=== PATIENT | female | born 1990 | race Caucasian/White ===

== ENCOUNTER 2018-07-13 00:27 | Emergency (ER) | payer MEDICARE ==
[~2018-07-13] VITALS: Ht 160 cm; Wt 45.5 kg
[~2018-07-13 00:27] MED LIST: AMBIEN5 MG PO; APRESOLINE25 MG PO; BENADRYL25 M1 PO; CARAFATE1 G PO; CATAPRES0.1 MG PO; CELEXA40 MG PO; CLARITIN 10 MG10 MG PO; COREG6.25 MG PO; EPOGEN10000 U/ML SQ; EZFE 200200 MG PO; FISH OIL 1,0001 CA1 PO; HYDRALAZINE HCL25 MG PO; HYDROCODONE-APA1 TAB PO; MINITRAN TD; MINIVELLE1 EAC1 TRANSDERM; MOTRIN800 MG PO; NIFEDIPINE ER30 MG PO; PHENERGAN25 M1 PO; PRILOSEC20 MG PO; RENVELA800 MG PO; TESSALON PERLE100 MG; TESSALON PERLE100 MG PO; TUMS500 MG PO; ULTRAM50 MG PO; VASOTEC10 MG PO; VISTARIL25 MG PO; XANAX0.5 MG PO; ZOFRAN ODT4 MG/UDTAB PO
[2018-07-13 00:33] VITALS: Ht 160 cm; Wt 45.5 kg
[2018-07-13 01:27] VITALS: BP 128/89
== END 2018-07-13 01:27 | disposition other institution (70) ==
LOC: D.ER 00:27
DX: K92.2 Gastrointestinal hemorrhage, unspecified (principal); Z99.2 Dependence on renal dialysis